=== PATIENT | male | born 1945 | race Caucasian/White ===

== ENCOUNTER 2017-09-08 14:46 | Inpatient (IN) | payer MEDICARE, OTHER ==
[~2017-09-08] VITALS: Ht 182.9 cm; Wt 76.8 kg
[2017-09-08 15:12] LABS: BASOPHILS # (AUTO) 0.1 X10'3 (0-0.2); BASOPHILS % (AUTO) 1.2 % (0-1); EOSINOPHILS % (AUTO) 0.4 % (0-6); HEMATOCRIT 43.5 % (42.0-52.0); HEMOGLOBIN 14.4 g/dl (14.0-17.9); LYMPHOCYTES # (AUTO) 1.6 X10'3 (1.1-4.8); LYMPHOCYTES % (AUTO) 16.6 % (21-51); MEAN CORPUSCULAR HEMOGLOBIN 28.2 PG (27.0-31.0); MEAN CORPUSCULAR HGB CONC 33.2 % (33.0-36.5); MEAN CORPUSCULAR VOLUME 84.9 FL (78-98); MEAN PLATELET VOLUME 6.8 FL (7.4-10.4); MONOCYTES # (AUTO) 0.6 X10'3 (0-0.9); MONOCYTES % (AUTO) 6.5 % (2-12); NEUTROPHILS # (AUTO) 7.3 X10'3 (1.8-7.7); NEUTROPHILS % (AUTO) 75.3 % (42-75); PLATELET COUNT 256 X10'3 (140-440); RED BLOOD COUNT 5.12 X10'6 (4.70-6.10); RED CELL DISTRIBUTION WIDTH 14.4 % (11.5-14.5); WHITE BLOOD COUNT 9.6 X10'3 (4.5-11.0)
[2017-09-08 15:20] LABS: PARTIAL THROMBOPLASTIN TIME 27 SECONDS (22-32); PROTHROMBIN TIME 10.6 SECONDS (9.0-12.0)
[2017-09-08 15:29] LABS: ALANINE AMINOTRANSFERASE 32 U/L (12-78); ALBUMIN 3.9 G/DL (3.4-5.0); ALKALINE PHOSPHATASE 48 IU/L (46-116); ANION GAP 11 (8-16); ASPARTATE AMINO TRANSFERASE 53 U/L (10-37); BILIRUBIN,TOTAL 0.6 MG/DL (0.1-1.0); BLOOD UREA NITROGEN 16 MG/DL (7-18); BUN/CREATININE RATIO 11.3 (5.4-32.0); CALCIUM 9.1 MG/DL (8.5-10.1); CHLORIDE 105 MMOL/L (99-107); CREATININE 1.41 MG/DL (0.60-1.10); GLUCOSE 88 MG/DL (70-104); POTASSIUM 3.7 MMOL/L (3.5-5.1); SODIUM 140 MMOL/L (135-145); TOTAL CARBON DIOXIDE 23.8 MMOL/L (24-32); TOTAL PROTEIN 7.9 G/DL (6.4-8.2); TROPONIN I < 0.04 NG/ML (0.0-0.05); eGFR 50 ML/MIN
[2017-09-08] MEDS ORDERED: aspirin 81mg tab.chew PO ONE (16:10)
[2017-09-08] MEDS ORDERED: enoxaparin 100mg/ml syringe SUBCUT ONE (16:10)
[2017-09-08] MEDS ORDERED: magnesium 2GM in 50ml NS 50 ML IV PRN (20:50)
[2017-09-08] MEDS ORDERED: acetaminophen 325mg tablet PO PRN (20:50)
[2017-09-08] MEDS ORDERED: potassium Cl 20 mEq SR tablet PO PRN ×2 (20:50)
[2017-09-08] MEDS ORDERED: potassium Cl 40MEQ/NS 500ml 500 ML IV PRN ×2 (20:50)
[2017-09-08] MEDS ORDERED: ondansetron/PF 4mg/2ml inj IV PRN (20:50)
[2017-09-08] MEDS ORDERED: magnesium 4gm in 100ml NS 100 ML IV PRN (20:50)
[2017-09-08] MEDS ORDERED: magnesium hydroxide 30ml (MOM) UD suspension PO PRN (20:50)
[2017-09-08] MEDS ORDERED: mag hydrox/Alum hydrox/simeth 30ml oral suspension PO PRN (20:50)
[2017-09-08] MEDS ORDERED: ipratropium/albuterol 3ml nebule NEB PRN (20:50)
[2017-09-08] MEDS ORDERED: LISI10TA4 PO (22:43)
[2017-09-08 23:13] VITALS: BP 144/95
[2017-09-09 02:00] VITALS: BP 117/81
[2017-09-09] MEDS ORDERED: enoxaparin 40mg/0.4ml syringe SQ SCH (04:00)
[2017-09-09 05:00] VITALS: BP 123/87
[2017-09-09 05:53] LABS: BASOPHILS % (AUTO) 0.1 % (0-1); EOSINOPHILS # (AUTO) 0.2 X10'3 (0-0.9); EOSINOPHILS % (AUTO) 1.8 % (0-6); HEMATOCRIT 41.8 % (42.0-52.0); HEMOGLOBIN 14.3 g/dl (14.0-17.9); LYMPHOCYTES # (AUTO) 2.2 X10'3 (1.1-4.8); LYMPHOCYTES % (AUTO) 24.7 % (21-51); MEAN CORPUSCULAR HGB CONC 34.2 % (33.0-36.5); MEAN CORPUSCULAR VOLUME 84.7 FL (78-98); MONOCYTES # (AUTO) 0.6 X10'3 (0-0.9); MONOCYTES % (AUTO) 6.9 % (2-12); NEUTROPHILS # (AUTO) 5.9 X10'3 (1.8-7.7); NEUTROPHILS % (AUTO) 66.5 % (42-75); PLATELET COUNT 224 X10'3 (140-440); RED BLOOD COUNT 4.94 X10'6 (4.70-6.10); RED CELL DISTRIBUTION WIDTH 15.1 % (11.5-14.5); WHITE BLOOD COUNT 8.9 X10'3 (4.5-11.0)
[2017-09-09 06:26] LABS: ALANINE AMINOTRANSFERASE 27 U/L (12-78); ALBUMIN 3.4 G/DL (3.4-5.0); ALKALINE PHOSPHATASE 43 IU/L (46-116); ANION GAP 11 (8-16); ASPARTATE AMINO TRANSFERASE 41 U/L (10-37); BILIRUBIN,TOTAL 0.6 MG/DL (0.1-1.0); BLOOD UREA NITROGEN 16 MG/DL (7-18); BUN/CREATININE RATIO 11.5 (5.4-32.0); CALCIUM 8.8 MG/DL (8.5-10.1); CHLORIDE 108 MMOL/L (99-107); CHOL/HDL RATIO 3.4 (0.00-4.99); CHOLESTEROL 141 MG/DL (0-200); CREATININE 1.39 MG/DL (0.60-1.10); GLUCOSE 81 MG/DL (70-104); HDL CHOLESTEROL 41 MG/DL (35-60); LDL CHOLESTEROL 92 MG/DL (50-100); MAGNESIUM 1.7 MG/DL (1.5-2.4); POTASSIUM 3.7 MMOL/L (3.5-5.1); SODIUM 143 MMOL/L (135-145); TOTAL CARBON DIOXIDE 24.1 MMOL/L (24-32); TOTAL PROTEIN 6.9 G/DL (6.4-8.2); TRIGLYCERIDES 67 MG/DL (20-135); eGFR 51 ML/MIN
[2017-09-09] MEDS ORDERED: enoxaparin 80mg/0.8ml syringe SUBCUT SCH (08:00)
[2017-09-09] MEDS: K and/or MAG REPLACEMENT MC SCH (09:46)
[2017-09-09 10:00] VITALS: BP 128/85
[2017-09-09 14:00] VITALS: BP 142/91
[2017-09-09 18:00] VITALS: BP 124/88
[2017-09-09 22:00] VITALS: BP 115/82
[2017-09-10 05:00] VITALS: BP 134/85
[2017-09-10 07:32] LABS: BASOPHILS % (AUTO) 0.4 % (0-1); EOSINOPHILS % (AUTO) 0.1 % (0-6); HEMATOCRIT 45.3 % (42.0-52.0); HEMOGLOBIN 15.4 g/dl (14.0-17.9); LYMPHOCYTES # (AUTO) 1.8 X10'3 (1.1-4.8); LYMPHOCYTES % (AUTO) 18.5 % (21-51); MEAN CORPUSCULAR HEMOGLOBIN 28.9 PG (27.0-31.0); MEAN CORPUSCULAR HGB CONC 33.9 % (33.0-36.5); MEAN CORPUSCULAR VOLUME 85.3 FL (78-98); MONOCYTES # (AUTO) 0.6 X10'3 (0-0.9); MONOCYTES % (AUTO) 6.6 % (2-12); NEUTROPHILS # (AUTO) 7.2 X10'3 (1.8-7.7); NEUTROPHILS % (AUTO) 74.4 % (42-75); PLATELET COUNT 243 X10'3 (140-440); RED BLOOD COUNT 5.31 X10'6 (4.70-6.10); WHITE BLOOD COUNT 9.6 X10'3 (4.5-11.0)
[2017-09-10 07:50] LABS: ALANINE AMINOTRANSFERASE 29 U/L (12-78); ALBUMIN 3.5 G/DL (3.4-5.0); ALBUMIN/GLOBULIN RATIO 0.9 (1.1-1.5); ALKALINE PHOSPHATASE 44 IU/L (46-116); ANION GAP 11 (8-16); ASPARTATE AMINO TRANSFERASE 39 U/L (10-37); BILIRUBIN,TOTAL 0.7 MG/DL (0.1-1.0); BLOOD UREA NITROGEN 19 MG/DL (7-18); BUN/CREATININE RATIO 13.1 (5.4-32.0); CALCIUM 8.9 MG/DL (8.5-10.1); CHLORIDE 106 MMOL/L (99-107); CREATININE 1.45 MG/DL (0.60-1.10); GLUCOSE 89 MG/DL (70-104); MAGNESIUM 1.9 MG/DL (1.5-2.4); POTASSIUM 3.7 MMOL/L (3.5-5.1); SODIUM 141 MMOL/L (135-145); TOTAL CARBON DIOXIDE 23.9 MMOL/L (24-32); TOTAL PROTEIN 7.4 G/DL (6.4-8.2); eGFR 48 ML/MIN
[2017-09-10] MEDS: aspirin 81mg tablet.DR PO SCH (07:50)
[2017-09-10] MEDS: rivaroxaban 20mg tablet PO SCH (07:50)
[2017-09-10] MEDS: carVEDilol 3.125mg tablet PO SCH ×2 (07:50→19:41)
[2017-09-10] MEDS: K and/or MAG REPLACEMENT MC SCH (07:58)
[2017-09-10 10:00] VITALS: BP 122/82
[2017-09-10] MEDS ORDERED: RIVA20TA PO (17:25)
[2017-09-10] MEDS ORDERED: ATOR10TA PO (17:25)
[2017-09-10] MEDS ORDERED: ASPI-1071 PO (17:25)
[2017-09-10] MEDS ORDERED: COR3.125T PO (17:25)
[2017-09-10 18:00] VITALS: BP 124/95
[2017-09-10 22:24] VITALS: BP 121/85
[2017-09-11 06:14] LABS: BASOPHILS % (AUTO) 0.4 % (0-1); EOSINOPHILS # (AUTO) 0.2 X10'3 (0-0.9); EOSINOPHILS % (AUTO) 1.6 % (0-6); HEMATOCRIT 44.7 % (42.0-52.0); HEMOGLOBIN 15.1 g/dl (14.0-17.9); LYMPHOCYTES # (AUTO) 1.8 X10'3 (1.1-4.8); LYMPHOCYTES % (AUTO) 17.8 % (21-51); MEAN CORPUSCULAR HEMOGLOBIN 29.2 PG (27.0-31.0); MEAN CORPUSCULAR HGB CONC 33.8 % (33.0-36.5); MEAN CORPUSCULAR VOLUME 86.6 FL (78-98); MONOCYTES # (AUTO) 0.7 X10'3 (0-0.9); MONOCYTES % (AUTO) 6.9 % (2-12); NEUTROPHILS # (AUTO) 7.5 X10'3 (1.8-7.7); NEUTROPHILS % (AUTO) 73.3 % (42-75); PLATELET COUNT 235 X10'3 (140-440); RED BLOOD COUNT 5.16 X10'6 (4.70-6.10); RED CELL DISTRIBUTION WIDTH 15.3 % (11.5-14.5); WHITE BLOOD COUNT 10.2 X10'3 (4.5-11.0)
[2017-09-11 06:40] LABS: ALANINE AMINOTRANSFERASE 29 U/L (12-78); ALBUMIN 3.5 G/DL (3.4-5.0); ALBUMIN/GLOBULIN RATIO 0.9 (1.1-1.5); ALKALINE PHOSPHATASE 43 IU/L (46-116); ANION GAP 9 (8-16); ASPARTATE AMINO TRANSFERASE 41 U/L (10-37); BILIRUBIN,TOTAL 0.6 MG/DL (0.1-1.0); BLOOD UREA NITROGEN 23 MG/DL (7-18); CALCIUM 9.1 MG/DL (8.5-10.1); CHLORIDE 104 MMOL/L (99-107); CREATININE 1.53 MG/DL (0.60-1.10); GLUCOSE 95 MG/DL (70-104); MAGNESIUM 2.1 MG/DL (1.5-2.4); POTASSIUM 4.2 MMOL/L (3.5-5.1); SODIUM 140 MMOL/L (135-145); TOTAL CARBON DIOXIDE 26.8 MMOL/L (24-32); TOTAL PROTEIN 7.2 G/DL (6.4-8.2); eGFR 45 ML/MIN
[2017-09-11 07:00] VITALS: BP 115/71
[2017-09-11] MEDS: K and/or MAG REPLACEMENT MC SCH (08:00)
[2017-09-11] MEDS: carVEDilol 3.125mg tablet PO SCH (08:23)
[2017-09-11] MEDS: rivaroxaban 20mg tablet PO SCH (08:23)
[2017-09-11] MEDS: aspirin 81mg tablet.DR PO SCH (08:23)
== END 2017-09-11 10:00 | disposition home or self-care (01) | DRG 69 ==
LOC: ER 14:46 → ED HOLD 20:48 → EDBEDREQ 22:09 → ORTHO 4S 22:52
PROVIDERS: ADMIT Family Medicine; ATTEND Legal Medicine
PROC: 4A10X4Z Monitoring of Central Nervous Electrical Activity, External Approach (ICD-10-PCS; principal; 2017-09-09)
DX: G45.9 Transient cerebral ischemic attack, unspecified (principal); N17.9 Acute kidney failure, unspecified; I48.91 Unspecified atrial fibrillation; I10 Essential (primary) hypertension; Z79.899 Other long term (current) drug therapy
CPT/HCPCS: 36415; 70450; 70544; 70551; 71045; 80053; 80061; 82948; 83735; 84484; 85025; 85610; 85730; 87070; 92616; 93005; 93306; 93880; 94760; 95816; 96372; 97162; 97530; 99291; J1650